=== PATIENT | male | born 1995 | race Caucasian/White ===

== ENCOUNTER → 2018-09-22 13:53 | Outpatient (CLI) | payer OTHER, SELFPAY ==
[2018-10-03 08:45] LABS: Hepatitis B Surf AB Imm QUANT < 5 mIU/mL (> 9)
== END ==
PROVIDERS: Family Provider Pediatrics; PCP Family Medicine; Visit Provider Family Medicine
DX: Z92.29 Personal history of other drug therapy (principal)
CPT/HCPCS: 36415; 86317; 86704